=== PATIENT | male | born 1960 | race Caucasian/White ===

== ENCOUNTER → 2022-01-08 11:29 | Outpatient (BNV) | payer MEDICARE, OTHER, SELFPAY | PROVIDERS: PCP Internal Medicine Cardiovascular Disease; Referring Provider Internal Medicine Cardiovascular Disease; Visit Provider Internal Medicine Medical Oncology | DX: I82.401 Acute embolism and thrombosis of unspecified deep veins of right lower extremity (principal); I82.402 Acute embolism and thrombosis of unspecified deep veins of left lower extremity; Z86.711 Personal history of pulmonary embolism | CPT/HCPCS: 99204; 99213; 99214 ==